=== PATIENT | female | born 1945 | race Caucasian/White ===

== ENCOUNTER 2019-11-05 17:12 | Emergency (ER) | payer OTHER ==
[~2019-11-05] VITALS: Ht 157.5 cm; Wt 43.1 kg
[2019-11-05] MEDS ORDERED: [UNRECOGNIZED DRUG - OTHER] (17:20)
[2019-11-05] MEDS ORDERED: [UNRECOGNIZED DRUG - OTHER] (17:21)
== END 2019-11-05 22:59 | disposition home or self-care (01) ==
LOC: ER 17:12
DX: C78.7 Secondary malignant neoplasm of liver and intrahepatic bile duct (principal); R10.84 Generalized abdominal pain